=== PATIENT | male | born 1950 | race Caucasian/White ===

== ENCOUNTER → 2020-03-02 09:24 | Outpatient (BNVA) | payer MEDICARE, OTHER, SELFPAY | PROVIDERS: Family Provider Nurse Practitioner Family; Visit Provider Orthopaedic Surgery | DX: M25.512 Pain in left shoulder (principal) | CPT/HCPCS: 73030 ==

== ENCOUNTER 2020-03-03 06:00 | Outpatient (RCR) | payer MEDICARE, OTHER, SELFPAY | END 2020-03-14 23:59 | disposition home or self-care (01) | LOC: TPT 06:00 | PROVIDERS: PCP Nurse Practitioner Family; Referring Provider Orthopaedic Surgery; Visit Provider Orthopaedic Surgery | DX: M65.812 Other synovitis and tenosynovitis, left shoulder (principal) | CPT/HCPCS: 97110; 97161 ==

== ENCOUNTER 2020-03-15 06:00 | Outpatient (RCR) | payer MEDICARE, OTHER, SELFPAY | END 2020-03-17 23:00 | disposition home or self-care (01) | LOC: TPT 06:00 | PROVIDERS: PCP Nurse Practitioner Family; Visit Provider Orthopaedic Surgery | DX: M65.812 Other synovitis and tenosynovitis, left shoulder (principal) | CPT/HCPCS: 97110 ==

== ENCOUNTER → 2021-01-04 08:16 | Outpatient (BNVA) | payer MEDICARE, OTHER, SELFPAY | PROVIDERS: PCP Nurse Practitioner Family; Referring Provider Nurse Practitioner Family; Visit Provider Specialist | DX: G31.84 Mild cognitive impairment of uncertain or unknown etiology (principal); G62.9 Polyneuropathy, unspecified | CPT/HCPCS: 96116; 99205 ==

== ENCOUNTER 2021-02-02 11:46 | Outpatient (CLI) | payer MEDICARE, OTHER, SELFPAY ==
--- NOTE | 2021-02-02 13:13 | MR_ITS ---
WS: [id number] MRI BRAIN WITHOUT CONTRAST HISTORY: MILD COGNITIVE IMPAIRMENT COMPARISON: None available. TECHNIQUE: Diffusion imaging, multiplanar T1, T2 and FLAIR imaging obtained. No evidence for acute infarct or hemorrhage. Dewitt-white matter differentiation is normal. Mild bilateral atrophy. Susceptibility artifacts are noted scattered throughout the brain but predomi nantly within the frontal lobes bilaterally in a subcortical distribution with also a few scattered a reas in the RIGHT temporal lobe. Distribution suggests this may be related to prior trauma with tiny petechial hemorrhages. No large territory infarcts. No midline shift or mass effect. Ventricles and extra-axial spaces are normal. No inferior displacement of cerebellar tonsils. The sella turcica and pituitary gland are unremarkabl e. Posterior fossa is also unremarkable. Dural venous sinuses and [place] demonstrate no abnormality on this unenhanced studies. Paranasal sinuses: Small mucous retention cyst in the LEFT maxillary sinus. Mastoid air cells: Normal. Calvarium and scalp: Intact. MR/MR head wo con* [id number] IMPRESSION: 1. No acute infarct. 2. Multifocal areas of hemosiderin distribution within the brain but most sign ificant in the subcortical frontal lobes. Due to the distribution suggestive of prior trauma with small petechial hemorrhages. There is no acute hemorrhage or mass effect. 3. Mild cerebral atrophy. No significant chronic white matter ischemic disease .
== END 2021-02-02 11:47 | disposition home or self-care (01) ==
PROVIDERS: PCP Nurse Practitioner Family; Visit Provider Specialist
DX: G31.84 Mild cognitive impairment of uncertain or unknown etiology (principal)
CPT/HCPCS: 70551

== ENCOUNTER → 2021-02-09 10:15 | Outpatient (BNVA) | payer MEDICARE, OTHER, SELFPAY | PROVIDERS: PCP Nurse Practitioner Family; Visit Provider Specialist | DX: G31.84 Mild cognitive impairment of uncertain or unknown etiology (principal) | CPT/HCPCS: 95816 ==

== ENCOUNTER → 2021-05-10 10:19 | Outpatient (BNVA) | payer MEDICARE, OTHER, SELFPAY | PROVIDERS: PCP Nurse Practitioner Family; Referring Provider Nurse Practitioner Family; Visit Provider Orthopaedic Surgery | DX: M25.519 Pain in unspecified shoulder (principal); S43.101A Unspecified dislocation of right acromioclavicular joint, initial encounter; X58.XXXA Exposure to other specified factors, initial encounter | CPT/HCPCS: 73030 ==

== ENCOUNTER 2021-11-03 06:37 | Day surgery (SDC) | payer MEDICARE, OTHER, SELFPAY ==
[2021-11-02 13:22] VITALS: BMI 29.5
[2021-11-03] VITALS (17 sets, daily range): BP systolic 119–165; BP diastolic 78–105; PULSE 81–95; RESP 12–19; TEMP 36.6–36.8; O2SAT 92–98
[2021-11-03] MEDS: sodium chloride 0.9% 1,000 ML 30 ML IV (07:03)
[2021-11-03] MEDS: acetaminophen 500 mg Tablet 1000 MG PO (07:05)
--- NOTE | 2021-11-03 07:20 | ANES.PREANE2 ---
Pre-Anesthetic Assessment Pre-Anesthetic Assessment: Height/Weight: Height 1.88 m Weight 104.326 kg Temp Pulse Resp BP Pulse Ox 98 F 83 16 119/78 96 11/03/21 06:51 11/03/21 06:51 11/03/21 06:51 11/03/21 06:51 11/03/21 06:51 Preop Diagnosis: Chronic acromioclavicular joint separation Proposed Procedure: Operation Date: 11/03/21 07:55 Proposed Procedures p Coracoid ligament reconstruction with allograft 21209 S43.101a(Right) - Chadwick Sargent MD Familial anesthetic complications: none Was Beta Bushra taken within 24 hours: N/A Was Clonidine taken within 24 hours: N/A Last intake: Intake Last Liquid Date 11/03/21 Last Liquid Time 00:00 Last Solid Date 11/02/21 Last Solid Time 17:00 Social: Social History: No alcohol and No tobacco Exam: Pre-Anes Outpt Exam: alert, oriented x 3, clear to auscultation bilaterally and regular rate & rhythm Airway: Cervical ROM: WNL MP: 3 Dentition: Full GI: GI: GERD Anesthetic Plan: ASA status: 2 Anesthesia: General Risk of > 500 ml blood loss (7ml/kg in children): No Medications/Allergies Current Medications: Current Medications Generic Name Dose Route Start Last Admin Trade Name Freq PRN Reason Stop Dose Admin Sodium Chloride 1,000 mls @ 30 ml s/hr 11/03/21 06:45 11/03/21 07:03 Sodium Chloride 0.9% IV 11/04/21 06:44 30 mls/hr .Q24H SAGAR Administration PFSH Anesthesia PFSH: Social History Alcohol intake: current Alcohol intake frequency: holidays/special occasions only Data Anesthesia Cardiac Studies: No Data to Display
--- NOTE | 2021-11-03 07:53 | W.PM.OPSUD ---
Surgery/Procedure H&P Update DATE OF PROCEDURE: November 03, 2021 DATE H&P PERFORMED: 10/18/20 H&P UPDATE INFORMATION: I have reviewed H&P completed within last 30 days PREOP DIAGNOSIS: Chronic acromioclavicular joint separation PLANNED PROCEDURE: Operation Date: 11/03/21 07:55 Proposed Procedures p Coracoid ligament reconstruction with allograft 50582 S43.101a(Right) - Chadwick Sargent MD
--- NOTE | 2021-11-03 09:50 | PM.OP ---
Operative Report Date of procedure: November 03, 2021 Pre-op Diagnosis: Chronic acromioclavicular joint separation Post-op diagnosis: same Post-op Findings: Same Procedure Done: Open reconstruction right coracoclavicular ligament, open right distal clavicle excision Implants: 13 cm Lockdown acromioclavicular device, 32 mm cortical screw and 1 mm washer, Arthrex 10 mm speed graft Pathology: none sent Surgeon: Chadwick Sargent Anesthesia: General Estimated blood loss (mL): 100 Complications: None Findings: The patient had a chronic right acromioclavicular joint separation with migration of the clavicle above the acromion. The clavicle was reducible with elevation of the shoulder Condition: stable Disposition: PACU Brief History: The patient is a 71-year-old male with a chronic right acromioclavicular joint separation uncertain origin. He had a history of number of injuries over the years. He has had continued pain over the acromioclavicular joint and surgical reconstruction is chosen to improved pain level Procedure: The patient was taken to the operating room and given 2 g of Ancef. He was positioned in the beachchair position with a bump beneath his right scapular and his right shoulder exposed. A timeout was performed. A 8 cm long incision was made from the dorsal shoulder just medial to the acromioclavicular joint extending distally to a point just medial over the coracoid. Dissection was accomplished through the skin down to the periosteum over the distal clavicle. The periosteum was elevated medially and laterally exposing the traumatized distal clavicle. The deltoid was split with his fascia down bringing us down to the coracoid process. An oscillating saw was used to resect approximately 1 mm with distal clavicle. Next the Lockdown coracoid suture passer was used to pass the measuring guide around the clavicle. It was brought beneath the clavicle and over the top and decision was made to proceed with a 13 cm implant. On the back table the allograft tendon was thawing. The measuring guide was then used to pull the leading sutures from the allograft as well as the final Lockdown implant around the coracoid. The implant in the lateral limb of the allograft were then passed beneath the clavicle and up over the top. Drill hole was made from anterior to posterior obliquely across the distal clavicle and measured to 28 mm. The 2 limbs of the allograft were then passed beneath the implant and the implant secured with a 32 mm screw and a washer. The allograft was then limbs were then sutured back on themselves with 0 Vicryl suture. The wound was irrigated with saline and antibiotics. The deltoid fascia and dorsal periosteum over the clavicle were closed with 0 Vicryl. The deep tissues were closed with a running 2-0 Stratafix and the skin with a running 4-0 Stratafix. Sterile dressings were applied. The patient was placed in a sling, extubated, and taken recovery room in stable condition.
[2021-11-03] MEDS: fentaNYL 50 mcg/mL INJ 2mL IVP ×2 (10:15→10:31)
[2021-11-03] MEDS: oxyCODONE-APAP 5-325 mg Tablet 1 TAB PO (10:56)
--- NOTE | 2021-11-03 16:20 | ANE.PACU2 ---
Inpatient post-anesthesia follow up: Airway intact: Yes Vital signs: Temperature 98 F Pulse Rate 89 Respiratory Rate 16 Blood Pressure 129/86 Pulse Oximetry 95 Oxygen Delivery Me thod Room Air Oxygen Flow Rate 2 Fraction of Inspir ed Oxygen Hydration adequate: Yes Nausea and vomiting: No Pain level: 2 Mental status: Baseline
== END 2021-11-03 12:25 | disposition home or self-care (01) ==
PROVIDERS: PCP Nurse Practitioner Family; Visit Provider Orthopaedic Surgery
PROC: (CPT 23120; principal; 2021-11-03 07:55)
DX: S43.101A Unspecified dislocation of right acromioclavicular joint, initial encounter (principal); X58.XXXA Exposure to other specified factors, initial encounter; K21.9 Gastro-esophageal reflux disease without esophagitis
CPT/HCPCS: 23120; 23552; C1713; J0690; J1100; J1580; J2370; J2405; J2704; J2710; J3010; J3490; J7030